=== PATIENT | female | born 1980 | race Caucasian/White ===

== ENCOUNTER 2020-03-20 10:17 | Inpatient (IN) | payer OTHER ==
[~2020-03-20] VITALS: Ht 162.6 cm; Wt 93.0 kg
[2020-03-20] MEDS ORDERED: SAXENDA3 MG/0.5 M SQ (10:29)
[2020-03-20] MEDS ORDERED: KETO10TA2 PO (10:30)
--- NOTE | 2020-03-20 10:30 | NUR ---
PACIENTE ALERTA, ORIENTADA X 3 ESFERAS REFIERE TENER FLANK PAIN, FYERTE DESDE SATNAM, ROSA REFERIDO DE DR.JOSE HENDRICKS. SE UBICA EN AREA DE OBSERVACION PARA EVALUACION MEDICA.
--- NOTE | 2020-03-20 11:25 | NUR ---
SE RECIBE PE FEMENIA DE 39 YRS ALERTA CONCIENTE Y TRANQUILA EN COMPANIA DE FAMILIAR/ PTE ES EVALUADA POR EL LEATHA [place]AMP[place] QUIEN ORDENA TRATAMIENTO LA CUAL SE EJECUTA. SE LE REALIZA ESTUDIO.
== END 2020-03-24 19:08 | disposition home or self-care (01) | DRG 661 ==
LOC: ER 10:17 → SURH 16:27 → SEC-K 18:03 → SURH 20:41
PROVIDERS: ADMIT Surgery; ATTEND Surgery
PROC: BW21ZZZ Computerized Tomography (CT Scan) of Abdomen and Pelvis (ICD-10-PCS; 2020-03-20)
PROC: 0T768DZ Dilation of Right Ureter with Intraluminal Device, Via Natural or Artificial Opening Endoscopic (ICD-10-PCS; principal; 2020-03-20 16:00)
DX: N20.2 Calculus of kidney with calculus of ureter (principal); R10.31 Right lower quadrant pain; Z20.828 Contact with and (suspected) exposure to other viral communicable diseases

== ENCOUNTER 2020-09-18 06:30 | Day surgery (SDC) | payer OTHER ==
[~2020-09-18 06:30] MED LIST: KETO10TA2 PO; SAXENDA3 MG/0.5 M SQ
== END 2020-09-18 12:00 | disposition home or self-care (01) ==
LOC: AMB-ENDOS 06:30
PROVIDERS: ATTEND Surgery
DX: D13.1 Benign neoplasm of stomach (principal); Z20.828 Contact with and (suspected) exposure to other viral communicable diseases; K44.9 Diaphragmatic hernia without obstruction or gangrene

== ENCOUNTER 2022-11-23 16:52 | Outpatient (CLI) | payer OTHER | END 2022-11-23 19:20 | disposition home or self-care (01) | LOC: NST 16:52 | PROVIDERS: ATTEND Obstetrics & Gynecology | DX: Z34.83 Encounter for supervision of other normal pregnancy, third trimester (principal) ==

== ENCOUNTER 2022-12-11 10:20 | Inpatient (IN) | payer OTHER ==
[~2022-12-11] VITALS: Ht 162.6 cm; Wt 88.9 kg
[2022-12-11] MEDS ORDERED: PRENATAL TABLE1 EAC1 PO (10:46)
[2022-12-13] MEDS ORDERED: DOXYLAMINE-PYR1 EACH (15:12)
== END 2022-12-14 11:32 | disposition home or self-care (01) | DRG 785 ==
LOC: LDR 10:20 → OB/GYN 15:13
PROVIDERS: ADMIT Obstetrics & Gynecology; ATTEND Obstetrics & Gynecology
PROC: 0UB70ZZ Excision of Bilateral Fallopian Tubes, Open Approach (ICD-10-PCS; 2022-12-11)
PROC: 4A1HXCZ Monitoring of Products of Conception, Cardiac Rate, External Approach (ICD-10-PCS; 2022-12-11)
PROC: 10D00Z1 Extraction of Products of Conception, Low, Open Approach (ICD-10-PCS; principal; 2022-12-11 11:00)
DX: O34.211 Maternal care for low transverse scar from previous cesarean delivery (principal); O99.824 Streptococcus B carrier state complicating childbirth; Z3A.38 38 weeks gestation of pregnancy; Z37.0 Single live birth; Z20.822 Contact with and (suspected) exposure to COVID-19; Z30.2 Encounter for sterilization